=== PATIENT | male | born 1960 | race African-American/Black ===

== ENCOUNTER 2025-07-02 18:20 | Emergency (ER) | payer MEDICARE ==
[2025-07-02] MEDS ORDERED: Metoprolol Succinate XL 50 MG ER.TAB ONE (18:43)
== END 2025-07-02 19:41 | disposition home or self-care (01) ==
LOC: MADERS 18:20
DX: S52.501A Unspecified fracture of the lower end of right radius, initial encounter for closed fracture (principal); I10 Essential (primary) hypertension; W01.0XXA Fall on same level from slipping, tripping and stumbling without subsequent striking against object, initial encounter; Y92.511 Restaurant or cafe as the place of occurrence of the external cause; Y99.0 Civilian activity done for income or pay
CPT/HCPCS: 25605; 99283